=== PATIENT | female | born 1960 | race Caucasian/White ===

== ENCOUNTER 2021-09-21 20:54 | Emergency (ER) | payer OTHER ==
[~2021-09-21] VITALS: Ht 168.9 cm; Wt 58.1 kg
[~2021-09-21 20:54] MED LIST: ALENDRONATE SOD70 MG PO; CITRACAL-VIT D1 EAC1 PO; K-DUR20 MEQ PO; LATUDA20 MG PO; LOSARTAN-HCTZ1 EACH PO; MACROBID100 MG PO; NORCO 5-325 TA1 EACH PO; NORVASC5 MG PO; PERCOCET 5-3251 EACH PO; PROAIR HFA8.5 GM INH; SEROQUEL 25MG T25 MG PO; ZOLOFT50 M1 PO
[2021-09-21 21:13] LABS: BASOPHIL 0.6 % (0-2); EOSINOPHIL 1.5 % (0-5); HCT 38.8 % (37.0-47.0); HGB 13.2 g/dl (12.5-16.0); LYMPHOCYTE 33.6 % (15-48); MCH 30.8 pg (25.0-31.0); MCV 90.4 fL (78.0-100.0); MONOCYTE 9.6 % (0-12); MPV 9.8 fL (6.0-9.5); NEUTROPHIL 54.4 % (41-80); NRBC 0; PLT 206 K/uL (150-400); RBC 4.29 M/uL (4.20-5.40); RDW 14.3 % (11.5-14.0); WBC 6.5 K/uL (4.0-10.5)
[2021-09-21 21:33] LABS: ALBUMIN 3.8 g/dL (3.4-5.0); BILIRUBIN - TOTAL 0.2 mg/dL (0.2-1.0); BUN/CREAT RATIO (CALC) 9.7 RATIO; CREATININE 1.03 mg/dL (0.51-0.95); GLOBULIN (CALCULATION) 3.4 g/dL; POTASSIUM 3.8 mmol/L (3.5-5.1); TOTAL PROTEIN 7.2 g/dL (6.4-8.2)
[2021-09-21] MEDS ORDERED: OMEPRAZOLE 20MG20 MG PO (23:24)
== END 2021-09-21 23:35 | disposition home or self-care (01) ==
LOC: FER 20:54
PROVIDERS: Emergency Medicine
DX: R10.13 Epigastric pain (principal); F17.200 Nicotine dependence, unspecified, uncomplicated; Z88.8 Allergy status to other drugs, medicaments and biological substances
CPT/HCPCS: 36415; 80053; 83690; 84484; 85025; 93005; J7030; Q9967

== ENCOUNTER 2022-03-09 10:26 | Emergency (ER) | payer OTHER ==
[~2022-03-09 10:26] MED LIST changes: +OMEPRAZOLE 20MG20 MG PO
[2022-03-09] MEDS ORDERED: NORCO 5-325 TA1 EACH PO (12:45)
== END 2022-03-09 13:10 | disposition home or self-care (01) ==
LOC: FER 10:26
DX: S42.202A Unspecified fracture of upper end of left humerus, initial encounter for closed fracture (principal); F17.210 Nicotine dependence, cigarettes, uncomplicated; V49.40XA Driver injured in collision with unspecified motor vehicles in traffic accident, initial encounter; Z28.310 Unvaccinated for COVID-19
CPT/HCPCS: 73030